=== PATIENT | male | born 1960 | race Caucasian/White ===

== ENCOUNTER 2019-06-14 21:24 | Emergency (ER) | payer SELFPAY ==
[~2019-06-14] VITALS: Ht 182.9 cm; Wt 92.0 kg
[2019-06-14 21:33] VITALS: BP 158/91
== END 2019-06-14 23:42 | disposition home or self-care (01) ==
LOC: ER 21:24
DX: F10.229 Alcohol dependence with intoxication, unspecified (principal); Y90.9 Presence of alcohol in blood, level not specified
CPT/HCPCS: 99283